=== PATIENT | female | born 1935 | race Caucasian/White ===

== ENCOUNTER 2020-03-04 00:45 | Inpatient (IN) | payer OTHER, MEDICAID, SELFPAY ==
[~2020-03-04] VITALS: Ht 160 cm; Wt 63.5 kg
[2020-03-04 00:50] VITALS: BP 160/72
--- NOTE | 2020-03-04 01:18 | NUR ---
84 y/o female biba c/o right shoulder pain s/p fall. Patient denies any injury to the head. A/ox4; breathing unlabored; 93% on RA. Speech is clear. Denies n/v/d. Pain is 8/10 acute pain. Slight range of motion on right arm compared to the right arm. skin warm and dry. Ermd made aware. Will continue to monitor. Addendum: 03/04/20 at 0212 by Solta MedicalSIDNEY Patient has left upper catheter.
[2020-03-04] MEDS ORDERED: NACL 0.9% 500 ML IV SCH (01:43)
[2020-03-04] MEDS ORDERED: ONDANSETRON 4 MG/2 ML VIAL IVP ONE (01:45)
[2020-03-04] MEDS ORDERED: MORPHINE SULFATE 2 MG/ML SYR IVP ONE (01:45)
--- NOTE | 2020-03-04 02:00 | NUR ---
EKG PERFORMED AT BEDSIDE
--- NOTE | 2020-03-04 02:08 | NUR ---
Patient taken to CT.
[2020-03-04 02:18] LABS: BASOPHILS % (AUTO) 0.9 % (0.0-2.0); EOSINOPHILS # (AUTO) 0.2 K/uL (0-0.4); EOSINOPHILS % (AUTO) 4.1 % (0.0-4.0); HEMOGLOBIN 12.5 g/dL (12.0-16.0); LYMPHOCYTES # (AUTO) 1.1 K/uL (2.5-16.5); LYMPHOCYTES % (AUTO) 26.2 % (20.5-51.1); MEAN CORPUSCULAR HEMOGLOBIN 31 pg (27-31); MEAN CORPUSCULAR HGB CONC 34 g/dL (33-37); MONOCYTES # (AUTO) 0.5 K/uL (0.8-1.0); MONOCYTES % (AUTO) 12.4 % (1.7-9.3); NEUTROPHILS # (AUTO) 2.4 K/uL (1.8-7.7); NEUTROPHILS % (AUTO) 56.4 % (42.2-75.2); PLATELET COUNT (AUTO) 135 K/uL (140-450); RED BLOOD CELL COUNT(AUTO) 4.02 MIL/uL (4.20-5.40); RED CELL DISTRIBUTION WIDTH 13.8 % (11.6-13.7); WHITE BLOOD COUNT (AUTO) 4.2 K/uL (4.8-10.8)
[2020-03-04 02:33] LABS: PROTHROMBIN TIME 10.9 secs (10.8-13.4)
[2020-03-04 02:36] LABS: ANION GAP 15.2 (8-16); ASPARTATE AMINOTRANSFERASE 32 U/L (15-37); CARBON DIOXIDE 25.3 mmol/L (21-32); CHLORIDE 105 mmol/L (98-107); CREATININE 0.9 mg/dL (0.6-1.3); GLUCOSE 100 mg/dL (74-106); POTASSIUM 3.5 mmol/L (3.5-5.1); SODIUM SERUM 142 mmol/L (136-145); TOTAL BILIRUBIN 0.5 mg/dL (0.0-1.0); UREA NITROGEN, BLOOD 14 mg/dL (7-18)
--- NOTE | 2020-03-04 03:00 | NUR ---
Patient sitting quietly in bed. Will continue to monitor. Addendum: 03/04/20 at 0553 by NOMAN Patient states 0/10 pain at this time.
[2020-03-04 03:10] LABS: APPEARANCE,URINE SL CLOUDY (CLEAR); BILIRUBIN,URINE NEGATIVE (NEGATIVE); BLOOD, URINE NEGATIVE (NEGATIVE); COLOR,URINE YELLOW (YELLOW); LEUKOCYTE ESTERASE ,URINE 1+ (NEGATIVE); NITRITE, URINE POSITIVE (NEGATIVE); PH,URINE 6.5 (5.0-9.0); UGLUCOSE NEGATIVE (NEGATIVE)
[2020-03-04 03:48] LABS: RBC,URINE 0-5 /HPF (0-5)
[2020-03-04] MEDS ORDERED: LEVOFLOXACIN 500 MG/D5W PREMIX 100 ML IV ONE (03:55)
--- NOTE | 2020-03-04 04:30 | NUR ---
Patient resting with eyes closed. No distress. Will continue to monitor.
[2020-03-04] MEDS ORDERED: ASPIRIN 81 MG TAB.CHEW PO ONE (05:05)
--- NOTE | 2020-03-04 05:35 | NUR ---
Patient is resting in bed, sitting with HOB 30 degrees. VSS. No distress noted. Will continue to monitor.
--- NOTE | 2020-03-04 07:05 | NUR ---
Pt report given to Rachel. IBRAHIM. Transfer of care at this time.
--- NOTE | 2020-03-04 07:15 | NUR ---
RECEIVED REPORT FROM PATRICE VAUGHAN.
--- NOTE | 2020-03-04 09:41 | NUR ---
PT IS RESTING IN THE BED. VSS SHOWS ON THE MONITOR.
[2020-03-04] MEDS ORDERED: ONDANSETRON 4 MG/2 ML VIAL IM/IVP PRN (10:00)
[2020-03-04] MEDS ORDERED: MORPHINE SULFATE 2 MG/ML SYR IVP PRN (10:00)
[2020-03-04] MEDS ORDERED: ACETAMINOPHEN 325 MG TAB PO PRN (10:00)
[2020-03-04] MEDS ORDERED: DOCUSATE SODIUM 100 MG GELCAP PO PRN (10:00)
[2020-03-04] MEDS ORDERED: HYDROcodone/APAP 5/325 MG 1 TAB TAB PO PRN (10:00)
[2020-03-04] MEDS ORDERED: HYDR100T79 PO (10:44)
[2020-03-04] MEDS ORDERED: MAGN400S60 PO (10:44)
[2020-03-04] MEDS ORDERED: SERT-146 PO (10:44)
[2020-03-04] MEDS ORDERED: BISA-213 RC (10:44)
[2020-03-04] MEDS ORDERED: [UNRECOGNIZED DRUG - CODE] PO (10:44)
[2020-03-04] MEDS ORDERED: CAPS0.026 TP (10:44)
[2020-03-04] MEDS ORDERED: ASPI81EC98 PO (10:44)
[2020-03-04] MEDS ORDERED: FURO-572 PO (10:44)
[2020-03-04] MEDS ORDERED: LISI-424 PO (10:44)
[2020-03-04] MEDS ORDERED: CAPS42.513 TP (10:44)
[2020-03-04] MEDS ORDERED: ACET-2619 PO ×2 (10:44)
[2020-03-04] MEDS ORDERED: [UNRECOGNIZED DRUG - CODE] PO (10:44)
[2020-03-04] MEDS ORDERED: SENN8.6T70 PO (10:44)
[2020-03-04] MEDS ORDERED: GABA-638 PO (10:44)
[2020-03-04] MEDS ORDERED: ONDA4TAB PO (10:44)
[2020-03-04] MEDS ORDERED: DONE10TA37 PO (10:44)
[2020-03-04 10:52] LABS: MAGNESIUM 1.6 mg/dL (1.8-2.4); PHOSPHORUS 3.1 mg/dL (2.5-4.9); THYROID STIMULATING HORMONE 2.64 uIU/mL (0.34-3.74)
--- NOTE | 2020-03-04 11:10 | NUR ---
Patient will be admitted to care of R/O COVID-19, ESCALATING TROPONIN, UTI, AND RIGHT HUMERAL FX. Admited to TELEMETRY. Will go to room 113. Belongings list completed. Report to PATRICE KU.
--- NOTE | 2020-03-04 11:15 | NUR ---
COVID-19 SWAB OBTAINED AT BEDSIDE AND SENT TO THE LAB.
[2020-03-04 12:00] VITALS: BP 175/58
--- NOTE | 2020-03-04 12:00 | NUR ---
PT ON THE UNIT AT 1110, RECEIVED REPORT FROM NURSE KU FOR CONTINUITY OF CARE, PT STABLE, PT [id number], PT HAS RIGHT FA 20G INFUSING NORMAL SALINE AT 40ML/H, SKIN INTACT, MRSA SWAB TAKEN, INTRODUCE TO ROOM, BED IN LOW POSITION, BED ALARM ON, PT STABLE, CALL LIGHT WITHIN REACH.
[2020-03-04] MEDS: NACL 0.9% 1,000 ML IV SCH (12:34)
[2020-03-04] MEDS ORDERED: MAG SULF 2000 MG/WATER PREMIX 50 ML IV SCH (13:00)
--- NOTE | 2020-03-04 13:37 | NUR ---
ADMINISTERED SCHEDULED MEDICATION, MEDICATION EDUCATION GIVEN, PT TOLERATED WELL, PT IS STABLE, TALKING TO HER SON HONORIO ON THE PHONE, CALL LIGHT WITHIN REACH.
[2020-03-04] MEDS ORDERED: BISACODYL 10 MG SUPP RC PRN (14:25)
[2020-03-04] MEDS ORDERED: ONDANSETRON 4 MG TAB PO PRN (14:25)
[2020-03-04] MEDS ORDERED: MAGNESIUM HYDROXIDE 2400 MG/30 ML UDC PO PRN (14:25)
--- NOTE | 2020-03-04 15:10 | NUR ---
[age] YRS OLD FEMALE PATIENT WAS ADMITTED FROM [facility] WITH A DX OF UTI AND RIGHT HUMERUS FRACTURE . PT HAS A HX OF HTN, OA ,DEMENTIA , MAJOR DEPRESSIVE DISORDER ,CHF AND PERIPHERAL NEUROPATHY . XR RIGHT HUMERUS SHOWED OLD FRACTURE ,DEFORMITY OF HUMERAL HEAD AND NECK AND OSTEOPOROSIS. 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 CT ABD/PELVIS SHOWED NO BOWEL OBSTRUCTION NONCALCIFIED GALLSTONE. STARTED IV FLUID , LEVAQUIN IV ABX. CONSULTED WITH LISETTE SOFIA DR., DC PLAN TO GO BACK TO [facility] WHEN STABLE CM TO FOLLOW Addendum: 03/05/20 at 0935 by Tamica Luz CM SPOKE WITH GREGG AT [facility] [phone] FAX # [phone] TO ASK IF THEY ARE ACCEPTING COVID POSITIVE PATIENTS. SHE ASKED THAT I SENT THE PATIENTS CLINICALS FOR REVIEW. AT THIS TIME THEY DO HAVE COVID PATIENTS AT THE FACILITY. I WILL FOLLOW UP. Addendum: 03/05/20 at 9313 by Tamica Luz CM SPOKE WITH GREGG AT [facility] THEY WILL ACCEPT PATIENT BUT THEY ARE IN THE PROCESS OF TRANSFERRING ALL COVID PATIENTS TO [facility]. SHE IS GOING TO REACH OUT TO THE FAMILY MEMBERS TO MAKE SURE THEY ARE AGREEABLE TO PATIENT GOING TO [facility]. I WILL FOLLOW UP ONCE WE RECEIVE DISCHARGE ORDER. Addendum: 03/06/20 at 1210 by Tamica Luz CM SPOKE TO GREGG AT [facility] THEY ARE STILL IN PROCESS OF MOVING ALL COVID PATIENTS TO [facility]. SHE STATED THAT PATIENT SHOULD HAVE A ROOM AVAILABLE BY THE END OF NOT, IF NOT TOMORROW. WILL FOLLOW UP WITH GREGG. Addendum: 03/06/20 at 1437 by Tamica Luz CM PATIENT WILL BE ACCEPTED BACK AT [facility] TODAY GOING TO ROOM 22 B ACCEPTING DOCTOR MICHAEL CAR. PATIENT WILL BE TRANSPORTED BY [facility]. NOTIFIED SON HONORIO TANG [phone]. NOTIFIED PATRICE BURLESON THAT PATIENT WILL BE DISCHARGED TODAY AND WILL NOTIFY THEM WHAT TIME [facility] WILL BE HERE. Addendum: 03/07/20 at 1037 by Tamica Luz CM PATIENT WAS DISCHARGED TO [facility]. JORY SARAVIA FROM [facility] CALLED TODAY [phone] TO VERIFY THAT PATIENT WAS ACCEPTED BACK TO [facility].
[2020-03-04] MEDS: hydrALAZINE 25 MG TAB PO PRN (15:15)
[2020-03-04] MEDS: LORazepam 2 MG/ML VIAL IM/IVP PRN (15:16)
--- NOTE | 2020-03-04 15:23 | NUR ---
ADMINISTERED ATIVAN FOR AGITATION, ADMINISTERED HYDRALAZINE FOR BP 175/68, HR63, MEDICATION EDUCATION GIVEN, PT TOLERATED MEDICATION, CALL LIGHT WITHIN REACH.
[2020-03-04 16:00] VITALS: BP 194/96
--- NOTE | 2020-03-04 17:00 | NUR ---
PT RESTING IN BED, NO SIGNS OF DISTRESS NOTED, RESPIRATIONS ARE EVEN AND UNLABORED, CALL LIGHT WITHIN REACH.
[2020-03-04] MEDS: OLANZapine 2.5 MG TAB PO SCH ×2 (17:47→18:01)
[2020-03-04] MEDS ORDERED: ALBUTEROL HFA MDI 90 MCG/ACTUATION 8 GM INH PRN (17:50)
--- NOTE | 2020-03-04 19:10 | NUR ---
GAVE REPORT TO NIGHT NURSE FOR CONTINUITY OF CARE, PT IS STABLE
--- NOTE | 2020-03-04 19:17 | NUR ---
RECEIVED REPORT FROM AM SHIFT NURSE FOR CONTINUITY OF CARE. RESPIRATIONS EVEN, UNLABORED. SKIN WARM, DRY. IV SITE NOTED TO RIGHT FOREARM 20G, INFUSING FLUIDS WELL. NO C/O PAIN. NO S/S ACUTE DISTRESS. CALL LIGHT WITHIN REACH. SAFETY PRECAUTIONS IN PLACE. ISOLATION PRECAUTIONS OBSERVED BY ALL STAFF.
[2020-03-04 20:00] VITALS: BP 179/69
[2020-03-04] MEDS: OXYBUTYNIN 5 MG TAB PO SCH (20:50)
[2020-03-04] MEDS: GABAPENTIN 300 MG CAP PO SCH (20:50)
[2020-03-04] MEDS: DONEPEZIL 10 MG TAB PO SCH (20:50)
[2020-03-04] MEDS: SENNA 8.6 MG TAB PO SCH (20:50)
[2020-03-04] MEDS ORDERED: hydrALAZINE 20 MG/ML VIAL IVP SCH (21:15)
--- NOTE | 2020-03-04 21:30 | NUR ---
PATIENT ACCIDENTLY PULLED OUT IV SITE. CATHETER INTACT. MINIMAL BLEEDING. NEW IV SITE STARTED ON LEFT FOREARM 22G USING ASEPTIC TECHNIQUE. GOOD BLOOD RETURN. NO DISCOMFORT VERBALIZED FROM PATIENT. CALL LIGHT IN REACH. SAFETY PRECAUTIONS IN PLACE. ISOLATION PRECAUTIONS OBSERVED BY ALL STAFF.
[2020-03-04] MEDS ORDERED: cefTRIAXone 1,000 MG VIAL ONE (21:58)
--- NOTE | 2020-03-04 23:33 | NUR ---
PATIENT HAD A HIGH BLOOD PRESSURE OF 179/69, HR 72. PRN HYDRALAZINE GIVEN WITH GOOD RESULTS: BP IS CURRENTLY AT 169/68, HR 74. PATIENT RESTING COMFORTABLY IN BED AT THIS TIME. ISOLATION PRECAUTIONS OBSERVED. CALL LIGHT IN REACH.
[2020-03-05] VITALS (7 sets, daily range): BP systolic 106–175; BP diastolic 42–70
--- NOTE | 2020-03-05 01:30 | NUR ---
INCONTINENT CARE RENDERED BY COST CONTROLLER. PATIENT COMFORTABLY IN BED. NO C/O PAIN. NO S/S ACUTE DISTRESS. CALL LIGHT IN REACH.
--- NOTE | 2020-03-05 03:24 | NUR ---
MADE ROUNDS. PATIENT IS ASLEEP. NO S/S ACUTE DISTRESS. CALL LIGHT WITHIN REACH. ISOLATION PRECAUTIONS OBSERVED BY STAFF.
[2020-03-05] MEDS ORDERED: hydrALAZINE 20 MG/ML VIAL IVP SCH (03:55)
--- NOTE | 2020-03-05 04:46 | NUR ---
PATIENT HAD AN ELEVATED BLOOD PRESSURE OF 175/[address] LIRA INFORMED WITH ORDER FOR HYDRALAZINE 10MG IVP. MEDICATED ORDERED. BLOOD PRESSURE CURRENTLY 169/60 HR 80. PATIENT IS ASLEEP AND IN NO S/S ACUTE DISTRESS. CALL LIGHT WITHIN REACH. ISOLATION PRECAUTIONS OBSERVED.
--- NOTE | 2020-03-05 06:01 | NUR ---
PATIENT RESTING COMFORTABLY IN BED. NO C/O PAIN. NO S/S ACUTE DISTRESS. CALL LIGHT WITHIN REACH. SAFETY PRECAUTIONS IN PLACE. ISOLATION PRECAUTIONS OBSERVED BY ALL STAFF.
--- NOTE | 2020-03-05 07:05 | NUR ---
RECEIVED BEDSIDE REPORT FROM NIGHTSHIFT NURSE. PT RESTING IN BED. ABLE TO MAKE NEEDS KNOWN. RESPONSIVE TO VERBAL AND TACTILE STIMULI. RESPIRATIONS EVEN AND UNLABORED WITH NO SOB OR RESPIRATORY DISTRESS. SKIN WARM AND DRY TO TOUCH. IV SITE IN L ARM 22G IS CLEAN, DRY, AND INTACT. SAFETY MEASURES IN PLACE. WILL CONTINUE TO MONITOR
[2020-03-05 07:11] LABS: BASOPHILS % (AUTO) 0.4 % (0.0-2.0); EOSINOPHILS # (AUTO) 0.1 K/uL (0-0.4); EOSINOPHILS % (AUTO) 3.3 % (0.0-4.0); HEMATOCRIT 38.6 % (36-48); LYMPHOCYTES # (AUTO) 1.3 K/uL (2.5-16.5); LYMPHOCYTES % (AUTO) 39.7 % (20.5-51.1); MEAN CORPUSCULAR HEMOGLOBIN 31 pg (27-31); MEAN CORPUSCULAR HGB CONC 34 g/dL (33-37); MEAN CORPUSCULAR VOLUME 92.6 fL (80-94); MONOCYTES # (AUTO) 0.4 K/uL (0.8-1.0); MONOCYTES % (AUTO) 11.1 % (1.7-9.3); NEUTROPHILS # (AUTO) 1.5 K/uL (1.8-7.7); NEUTROPHILS % (AUTO) 45.5 % (42.2-75.2); PLATELET COUNT (AUTO) 132 K/uL (140-450); RED BLOOD CELL COUNT(AUTO) 4.17 MIL/uL (4.20-5.40); WHITE BLOOD COUNT (AUTO) 3.2 K/uL (4.8-10.8)
[2020-03-05 07:29] LABS: ANION GAP 13.6 (8-16); ASPARTATE AMINOTRANSFERASE 29 U/L (15-37); CARBON DIOXIDE 26.9 mmol/L (21-32); CHLORIDE 107 mmol/L (98-107); CREATININE 0.7 mg/dL (0.6-1.3); GLUCOSE 88 mg/dL (74-106); LACTATE DEHYDROGENASE 190 U/L (81-234); MAGNESIUM 1.7 mg/dL (1.8-2.4); POTASSIUM 3.5 mmol/L (3.5-5.1); SODIUM SERUM 144 mmol/L (136-145); TOTAL BILIRUBIN 0.4 mg/dL (0.0-1.0); UREA NITROGEN, BLOOD 14 mg/dL (7-18)
[2020-03-05 07:59] LABS: CHOL/HDL RATIO 3.4 (1-4.5)
[2020-03-05] MEDS ORDERED: ASCORBIC ACID 500 MG TAB PO SCH (09:00)
--- NOTE | 2020-03-05 09:13 | NUR ---
PATIENT HAS BEEN SCREENED AND CATEGORIZED MODERATE NUTRITION RISK. PATIENT WILL BE SEEN WITHIN 3-5 DAYS OF ADMISSION. 03/06/20 03/08/[address]
[2020-03-05] MEDS ORDERED: MAG SULF 2000 MG/WATER PREMIX 50 ML IV SCH (10:00)
[2020-03-05] MEDS: ASCORBIC ACID 500 MG TAB PO SCH (10:15)
[2020-03-05] MEDS: SERTRALINE 50 MG TAB PO SCH (10:15)
[2020-03-05] MEDS: LISINOPRIL 5 MG TAB PO SCH (10:15)
[2020-03-05] MEDS: hydrALAZINE 25 MG TAB PO PRN ×2 (10:16→21:22)
[2020-03-05] MEDS: ECOTRIN 81 MG TABEC PO SCH (10:16)
[2020-03-05] MEDS: OXYBUTYNIN 5 MG TAB PO SCH ×2 (10:16→21:22)
[2020-03-05] MEDS: ZINC SULF 220 MG CAP PO SCH (10:17)
[2020-03-05] MEDS: GABAPENTIN 300 MG CAP PO SCH ×2 (10:17→21:23)
[2020-03-05] MEDS: VITAMIN D 400 IU TAB PO SCH (10:17)
[2020-03-05] MEDS: FUROSEMIDE 20 MG TAB PO SCH (10:17)
[2020-03-05] MEDS: NACL 0.9% 1,000 ML IV SCH (10:30)
--- NOTE | 2020-03-05 10:30 | NUR ---
ADMINISTERED SCHED MED PRESCRIBED PER MD ORDER. PT TOLERATED WELL. MEDICATION EDUCATION PERFORMED. PT VERBALIZED UNDERSTANDING. SAFETY MEASURES IN PLACE. WILL CONTINUE TO MONITOR
--- NOTE | 2020-03-05 11:38 | NUR ---
RAW MILL OPERATOR NOTE: Basic Screen: Yes High Risk DC Screen [place]: HONORIO TANG Home Relationship: SON Pre-Admission Living Arrangements: SNF Other: [facility] Prior ADL Needs Assistance Current Home Health Name/Tel: N/A Current DME/02 Name/Tel: [facility] Current Hospice Name/Tel: N/A Current Dialysis Name/Tel: N/A Healthcare Decision Maker: Next of Kin Other: HONORIO TANG Advance Directive No Physician Orders for Life Sustaining Treatment Form No Discipline: Case Mgt/Social Svcs Tentative Discharge Plan/Destination: SNF/ECF Other: [facility] Will require assistance post discharge: No Referred to Digital Tech: No Tentative Discharge Plan Summary: PATIENT IS AN 84-YEAR-OLD FEMALE ADMITTED FOR UTI AND RIGHT HUMERUS FRACTURE. PATIENT HAS PMHX OF OSTEOARTHRITIS, DEMENTIA, HTN, MAJOR DEPRESSIVE DISORDER, CHF, OAB, AND PERIPHERAL NEUROPATHY. PATIENT WAS ADMITTED FROM [facility]. SW CONTACTED LADJerry FROM [facility] TO VERIFY DEMOGRAPHICS [phone]. PER LADY, PATIENT IS SKILLED AND ON A BED HOLD. LADY STATED THAT PATIENT REQUIRES ASSSITANCE WITH BATHING AND MEAL PREPARATION BUT PATIENT IS INDEPENDENT WITH ALL OTHER ADLS. LADY STATED THAT PATIENT IS ALERT/ORIETNED BUT IS FORGETFUL. LADY STATED THAT PATIENT'S HEALTHCARE DECISION MAKER IS SON HONORIO TANG. TENTATIVE DISCHARGE PLAN IS FOR PATIENT TO RETURN TO [facility]. NO FURTHER NEEDS IDENTIFIED. Signature: MARCOS ROJAS Date: Mar 05, 2020 Time: 11:38
--- NOTE | 2020-03-05 12:15 | NUR ---
ASSISTED LOGISTICS COORDINATOR WITH CHANGING, TURNING, AND REPOSITIONING PT. PT TOLERATED WELL. WILL CONTINUE TO MONITOR
--- NOTE | 2020-03-05 13:45 | NUR ---
HOURLY ROUNDING. PT ASLEEP IN BED. RESPONSIVE TO VERBAL AND TACTILE STIMULI. RESPIRATIONS EVEN AND UNLABORED WITH NO SOB OR RESPIRATORY DISTRESS. SKIN WARM AND DRY TO TOUCH. SAFETY MEASURES IN PLACE. WILL CONTINUE TO MONITOR
--- NOTE | 2020-03-05 15:46 | NUR ---
PT TOOK OFF GOWN AND ATTEMPTED TO TAKE OFF LEADS. ASKED PT WHAT SHE WAS DOING AND SHE SAID, "I AM GETTING OUT OF HERE! I WANT TO GO HOME!." REORIENTED PT AND SHE BECAME UPSET THAT SHE HAS TO STAY ANOTHER NIGHT. SAFETY MEASURES IN PLACE. WILL CONTINUE TO MONITOR
--- NOTE | 2020-03-05 17:02 | NUR ---
ASSISTED OFFICE AGENT WITH TURNING, CHANGING, AND REPOSITIONING PT. PT TOLERATED WELL. SAFETY MEASURES IN PLACE. WILL CONTINUE TO MONITOR
--- NOTE | 2020-03-05 18:15 | NUR ---
PT RESTING IN BED. ABLE TO MAKE NEEDS KNOWN. RESPIRATIONS EVEN AND UNLABORED WITH NO SOB OR RESPIRATORY DISTRESS. SKIN WARM AND DRY TO TOUCH. SAFETY MEASURES IN PLACE. WILL CONTINUE TO MONITOR
--- NOTE | 2020-03-05 19:13 | NUR ---
ENDORSED TO NIGHTSHIFT NURSE FOR CONTINUITY OF CARE. PT IS STABLE
--- NOTE | 2020-03-05 19:14 | NUR ---
RECEIVED BEDSIDE REPORT FROM AM SHIFT NURSE. PT RESTING IN BED. A,O X 2 ABLE TO MAKE NEEDS KNOWN. RESPONSIVE TO VERBAL AND TACTILE STIMULI. RESPIRATIONS EVEN AND UNLABORED WITH NO SOB OR RESPIRATORY DISTRESS. SKIN WARM AND DRY TO TOUCH. IV SITE IN L ARM 22G IS CLEAN, DRY, AND INTACT. SAFETY MEASURES IN PLACE. WILL CONTINUE TO MONITOR
--- NOTE | 2020-03-05 20:20 | NUR ---
PATIENT ANXIOUS, AND RESTLESS SHE SAID SHE WANTS TO GO HOME, B.P 166/ 59 HIGH; 73, INFORMED PATIENT THAT SHE WILL GO HOME SOON CLEARED HER AND THAT WILL LET DRShani KNOW HER CONCERNS. PATIENT A,0 X 2. BEDREST FOLLOWS SIMPLE COMMANDS. WILL GIVE ATIVAN ORDERED PRN
--- NOTE | 2020-03-05 20:45 | NUR ---
DR. NOEL WENT TO ROOM, ORDERED VERBALLY REMDESIVIR 200 MG DAY 1, AND 100 MG DAY 2-5
[2020-03-05] MEDS: SENNA 8.6 MG TAB PO SCH (21:21)
[2020-03-05] MEDS: DONEPEZIL 10 MG TAB PO SCH (21:23)
[2020-03-05] MEDS: LORazepam 2 MG/ML VIAL IM/IVP PRN (21:26)
--- NOTE | 2020-03-05 22:05 | NUR ---
PATIENT SLEEPING COMFORTABLE, CLEANED PATIENT AND CHANGED PATIENT, PLACED PT ON HER SIDE WITH PILLOWS
[2020-03-06] VITALS: BP 125/43
--- NOTE | 2020-03-06 | NUR ---
PT SLEEPING, BUT EASILY AWAKENED BY VERBAL STIMULI, NO SIGNS AND SYMPTOMS OF RESPIRATORY DISTRESS. NO S/SX'S OF PAIN.
--- NOTE | 2020-03-06 02:28 | NUR ---
CHECKED ON PATIENT STILL SLEEPING BUT EASILY AWAKENED BY VERBAL STIMULI
[2020-03-06 04:00] VITALS: BP 176/63
--- NOTE | 2020-03-06 04:00 | NUR ---
HIGH BP 176/63; 96%; 97.8; 18; 0/10. WILL ADMISTER PRN HYDRALAZINE PER SCHEDULE AROUND 0600AM (LAST GIVEN WAS 2122 ( Q8 HRS FOR SBP GREATER 160)
[2020-03-06] MEDS: hydrALAZINE 25 MG TAB PO PRN ×2 (06:16→15:34)
--- NOTE | 2020-03-06 06:16 | NUR ---
ADMINISTERED HYDRALAZINE PRN BP= 176/63; HR 63; O2 SQAT 96%; TEMP 97.8; 0/10
--- NOTE | 2020-03-06 06:30 | NUR ---
PATIENT IN STABLE CONDITION AT THIS TIME, NO SIGNS OF RESPIRATORY DISTRESS; NO COMPLAINTS OF PAIN/ FACIAL GRIMACING. WILL ENDORSE TO NEXT SHIFT
--- NOTE | 2020-03-06 06:45 | NUR ---
REASSESSED PATIENT'S BP; AFTER ADMINISTERING HYDRALAZINE 130/40; HR 73, WILL ENDORSE TO NEXT SHIFT
--- NOTE | 2020-03-06 07:05 | NUR ---
REPORT GIVEN BY NIGHT NURSE. PATIENT IN STABLE CONDITION. PATIENT ASLEEP, EASILY AROUSABLE BY NAME OR TOUCH. INTRODUCED SELF. RESPIRATION EVEN AND UNLABORED. SKIN WARM AND DRY TO TOUCH. IV INTACT AND PATENT TO LEFT FOREARM. PLANS OF CARE DISCUSSED WITH NURSE. NO S/S OF DISTRESS NOTED. BED IN LOW POSITION. SAFETY MEASURES IN PLACE. CALL LIGHT WITHIN REACH.
[2020-03-06 07:16] LABS: BASOPHILS % (AUTO) 0.2 % (0.0-2.0); EOSINOPHILS # (AUTO) 0.2 K/uL (0-0.4); EOSINOPHILS % (AUTO) 4.8 % (0.0-4.0); HEMATOCRIT 36.1 % (36-48); HEMOGLOBIN 12.1 g/dL (12.0-16.0); LYMPHOCYTES # (AUTO) 1.4 K/uL (2.5-16.5); LYMPHOCYTES % (AUTO) 43.6 % (20.5-51.1); MEAN CORPUSCULAR HEMOGLOBIN 31 pg (27-31); MEAN CORPUSCULAR HGB CONC 34 g/dL (33-37); MEAN CORPUSCULAR VOLUME 92.3 fL (80-94); MONOCYTES # (AUTO) 0.4 K/uL (0.8-1.0); MONOCYTES % (AUTO) 13.1 % (1.7-9.3); NEUTROPHILS # (AUTO) 1.3 K/uL (1.8-7.7); NEUTROPHILS % (AUTO) 38.3 % (42.2-75.2); PLATELET COUNT (AUTO) 128 K/uL (140-450); RED BLOOD CELL COUNT(AUTO) 3.91 MIL/uL (4.20-5.40); WHITE BLOOD COUNT (AUTO) 3.3 K/uL (4.8-10.8)
[2020-03-06 08:00] VITALS: BP 180/62
[2020-03-06 08:03] LABS: ALBUMIN 2.8 g/dL (3.4-5.0); ANION GAP 12.8 (8-16); ASPARTATE AMINOTRANSFERASE 27 U/L (15-37); CARBON DIOXIDE 25.4 mmol/L (21-32); CHLORIDE 107 mmol/L (98-107); CREATININE 0.7 mg/dL (0.6-1.3); GLUCOSE 82 mg/dL (74-106); LACTATE DEHYDROGENASE 184 U/L (81-234); MAGNESIUM 1.9 mg/dL (1.8-2.4); POTASSIUM 3.2 mmol/L (3.5-5.1); SODIUM SERUM 142 mmol/L (136-145); TOTAL BILIRUBIN 0.4 mg/dL (0.0-1.0); UREA NITROGEN, BLOOD 15 mg/dL (7-18)
[2020-03-06] MEDS ORDERED: LOVENOX 1MG/KG Q24H SUBQ SCH (08:25)
[2020-03-06] MEDS ORDERED: COMMUNICATION ORDER MC SCH (09:00)
[2020-03-06] MEDS ORDERED: ENOXAPARIN 60 MG/0.6 ML SYR SUBQ SCH (09:00)
[2020-03-06] MEDS ORDERED: REMDESIVIR 200 MG IV SCH (09:00)
[2020-03-06] MEDS: OXYBUTYNIN 5 MG TAB PO SCH (09:29)
[2020-03-06] MEDS: VITAMIN D 400 IU TAB PO SCH (09:29)
[2020-03-06] MEDS: ASCORBIC ACID 500 MG TAB PO SCH (09:29)
[2020-03-06] MEDS: FUROSEMIDE 20 MG TAB PO SCH (09:29)
[2020-03-06] MEDS: GABAPENTIN 300 MG CAP PO SCH (09:29)
[2020-03-06] MEDS: LISINOPRIL 5 MG TAB PO SCH (09:30)
[2020-03-06] MEDS: ZINC SULF 220 MG CAP PO SCH (09:30)
[2020-03-06] MEDS: SERTRALINE 50 MG TAB PO SCH (09:30)
[2020-03-06] MEDS: ECOTRIN 81 MG TABEC PO SCH (09:30)
--- NOTE | 2020-03-06 09:30 | NUR ---
PATIENT AWAKE, VERBALLY RESPONSIVE. AM MEDS GIVEN, TOLERATED WELL. DENIES ANY SOB OR DISCOMFORT. BED IN LOW POSITION. BED ALARM ON. CALL LIGHT WITHIN REACH.
[2020-03-06] MEDS: NACL 0.9% 1,000 ML IV SCH (10:25)
[2020-03-06] MEDS ORDERED: POTASSIUM CHLORIDE 40 MEQ, LIDOCAINE MPF 1% 25 MG in NACL 0.9% 250 ML IV SCH (11:30)
--- NOTE | 2020-03-06 11:40 | NUR ---
PATIENT CLEANED AND REPOSITIONED FOR COMFORT. PATIENT AWAKE, ALERT AND ORIENTED X3. PATIENT ON THE PHONE WITH GLORIA OLMEDO. PT AT BEDSIDE FOR EVAL.
[2020-03-06] MEDS ORDERED: LEVO750T2 PO (11:51)
[2020-03-06] MEDS ORDERED: LACT-81 PO (11:51)
[2020-03-06 12:03] VITALS: BP 141/52
--- NOTE | 2020-03-06 14:20 | NUR ---
RT AT BEDSIDE. PATIENT AWAKE, VERBALLY RESPONSIVE. NO S/S OF DISTRESS NOTED.
[2020-03-06 15:00] VITALS: BP 170/74
--- NOTE | 2020-03-06 15:20 | NUR ---
BP NOTED 170/74 HYDRALAZINE WILL BE GIVEN PRN.
--- NOTE | 2020-03-06 15:35 | NUR ---
PATIENT IS DISCHARGED TO [facility]. PATIENT PICKED UP BY [facility] VIA [facility]URNEY TRANSPORT ACCOMPANIED BY 2 FLEET SALES MANAGER. DISCHARGE PAPERWORK GIVEN TO EMT AND PATIENT BELONGINGS GIVEN. IV REMOVED, CANNULA INTACT, BLEEDING CONTROLLED. PATIENT UNABLE TO SIGN. REPORT GIVEN ALREADY TO PATRICE BRAXTON. PATIENT IN STABLE CONDITION.
--- NOTE | 2020-03-06 20:10 | NUR ---
LAUREN WASTED WITH LULU DOS SANTOS RN.
[2020-03-07] MEDS ORDERED: REMDESIVIR 100 MG IV SCH (09:00)
== END 2020-03-06 15:35 | DRG 177 ==
LOC: MED 00:45 → MTU 10:14 → EEVIPCON 10:14
PROVIDERS: ADMIT General Practice; ATTEND General Practice
DX: U07.1 COVID-19 (principal); I50.43 Acute on chronic combined systolic (congestive) and diastolic (congestive) heart failure; J12.89 Other viral pneumonia; S42.451A Displaced fracture of lateral condyle of right humerus, initial encounter for closed fracture; N39.0 Urinary tract infection, site not specified; E44.1 Mild protein-calorie malnutrition; Z68.24 Body mass index [BMI] 24.0-24.9, adult; F03.90 Unspecified dementia, unspecified severity, without behavioral disturbance, psychotic disturbance, mood disturbance, and anxiety; F32.9 Major depressive disorder, single episode, unspecified; I11.0 Hypertensive heart disease with heart failure; M19.90 Unspecified osteoarthritis, unspecified site; Z88.8 Allergy status to other drugs, medicaments and biological substances; G89.29 Other chronic pain; G62.9 Polyneuropathy, unspecified; B96.1 Klebsiella pneumoniae [K. pneumoniae] as the cause of diseases classified elsewhere; E87.6 Hypokalemia; E83.42 Hypomagnesemia; K59.09 Other constipation; K57.30 Diverticulosis of large intestine without perforation or abscess without bleeding; K80.20 Calculus of gallbladder without cholecystitis without obstruction; N32.81 Overactive bladder; W01.0XXA Fall on same level from slipping, tripping and stumbling without subsequent striking against object, initial encounter; Y93.89 Activity, other specified; Y92.89 Other specified places as the place of occurrence of the external cause; Y99.8 Other external cause status
CPT/HCPCS: 36415; 71045; 73060; 80053; 81001; 82728; 83036; 83605; 83615; 83690; 83735; 83880; 84100; 84443; 84484; 85025; 85379; 85610; 85651; 85730; 86140; 87040; 87081; 87086; 87186; 93005; 96361; 96365; 96375; 97110; 97112; 97116; 97161-GP; 97530; 99285; J0360; J0696; J1644; J1650; J1956; J2001; J2060; J2270; J2405; J3475; J3480; J7030; J7060; Q0092; U0003-CS

== ENCOUNTER 2021-07-21 15:18 | Emergency (ER) | payer OTHER, MEDICAID ==
[~2021-07-21] VITALS: Ht 167.6 cm; Wt 68.9 kg
[~2021-07-21 15:18] MED LIST: ACET-2619 PO; ASCO-516 PO; ASPI81EC98 PO; BISA-213 RC; CAPS42.514 TP; DONE10TA37 PO; FURO-572 PO; GABA-638 PO; HYDR100T79 PO; LACT-81 PO; LEVO750T2 PO; LISI-648 PO; MAGN400S60 PO; ONDA4TAB PO; SENN-101 PO; SERT-515 PO; [UNRECOGNIZED DRUG - CODE] PO
[2021-07-21 15:26] VITALS: BP 125/48
--- NOTE | 2021-07-21 15:56 | NUR ---
Patient BIBA to bed 1 at this time.
[2021-07-21 16:01] LABS: BASOPHILS # (AUTO) 0.1 K/uL (0.00-0.22); BASOPHILS % (AUTO) 1.2 % (0.0-2.0); EOSINOPHILS # (AUTO) 0.6 K/uL (0-0.4); EOSINOPHILS % (AUTO) 8.3 % (0.0-4.0); HEMATOCRIT 34.7 % (36-48); HEMOGLOBIN 11.9 g/dL (12.0-16.0); LYMPHOCYTES # (AUTO) 1.5 K/uL (2.5-16.5); LYMPHOCYTES % (AUTO) 22.8 % (20.5-51.1); MEAN CORPUSCULAR HEMOGLOBIN 32 pg (27-31); MEAN CORPUSCULAR HGB CONC 34 g/dL (33-37); MEAN CORPUSCULAR VOLUME 92.1 fL (80-94); MONOCYTES # (AUTO) 0.5 K/uL (0.8-1.0); MONOCYTES % (AUTO) 7.2 % (1.7-9.3); NEUTROPHILS % (AUTO) 60.5 % (42.2-75.2); PLATELET COUNT (AUTO) 200 K/uL (140-450); RED BLOOD CELL COUNT(AUTO) 3.77 MIL/uL (4.20-5.40); RED CELL DISTRIBUTION WIDTH 13.4 % (11.6-13.7); WHITE BLOOD COUNT (AUTO) 6.7 K/uL (4.8-10.8)
[2021-07-21 16:24] LABS: ALBUMIN 3.5 g/dL (3.4-5.0); ANION GAP 15.6 (8-16); ASPARTATE AMINOTRANSFERASE 31 U/L (15-37); CARBON DIOXIDE 26.1 mmol/L (21-32); CHLORIDE 103 mmol/L (98-107); CREATININE 1.4 mg/dL (0.6-1.3); GLUCOSE 273 mg/dL (74-106); POTASSIUM 3.7 mmol/L (3.5-5.1); SODIUM SERUM 141 mmol/L (136-145); TOTAL BILIRUBIN 0.4 mg/dL (0.0-1.0); UREA NITROGEN, BLOOD 34 mg/dL (7-18)
--- NOTE | 2021-07-21 16:31 | NUR ---
86 Y/O F BIBA FROM [facility] POST WITNESSED MECHANICAL FALL, PT FELL ON FACE, NO LOC OR SYNCOPE NOTED. NOSE LAC, CONTROLLED BLEEDING AT THIS TIME WITH HEMATOMA ON L SIDE OF HEAD. PT IS CURRENTL A&OX1 TO NAME AT THIS TIME WITH A GCS OF 12 NORMAL BASELINE PER [facility]. DENIES N/V/D; SKIN IS PINK/COOL/LOOSE/DRY;LUNGS CLEAR BL; HR EVEN AND REGULAR; PT DENIES ANY FEVER, CP, SOB, OR COUGH AT THIS TIME; PT UNABLE TO DETERMINE PAIN AT THIS TIME; VSS; PATIENT POSITIONED FOR COMFORT; HOB ELEVATED; BEDRAILS UP X2; BED DOWN. ER MD MADE AWARE OF PT STATUS. PMH: DEMENTIA, NEUROPATHY, MEMORY LOSS ALLERGY: EPINEPHRINE
[2021-07-21] MEDS ORDERED: HYDROcodone/APAP 5/325 MG 1 TAB TAB ONE (16:33)
[2021-07-21] MEDS: HYDROcodone/APAP 5/325 MG 1 TAB TAB PO ONE ×2 (16:35→18:38)
--- NOTE | 2021-07-21 16:43 | NUR ---
PT TAKEN TO CT VIA [facility]
[2021-07-21] MEDS ORDERED: HYDR-5080 PO (18:14)
[2021-07-21 18:43] VITALS: BP 125/48
--- NOTE | 2021-07-21 18:44 | NUR ---
Patient discharged with v/s stable. Written and verbal after care instructions given and explained. Patient alert, oriented and verbalized understanding of instructions. Ambulance Transport with [facility]. All questions addressed prior to discharge. ID band removed. Patient advised to follow up with PMD. Rx of HYDROCODONE SCRIPT given. Patient educated on indication of medication including possible reaction and side effects. Opportunity to ask questions provided and answered. CD WITH PACKET GIVEN TO TRANSPORT
--- NOTE | 2021-07-21 18:46 | NUR ---
[facility] [phone] WAS CALLED [phone], PT WAS TAKEN VIA [facility] AT THIS TIME. ANTONIO IBRAHIM GIVEN REPORT AT THIS TIME.
== END 2021-07-21 18:44 ==
LOC: MED 15:18
DX: S02.2XXA Fracture of nasal bones, initial encounter for closed fracture (principal); S09.90XA Unspecified injury of head, initial encounter; I10 Essential (primary) hypertension; F03.90 Unspecified dementia, unspecified severity, without behavioral disturbance, psychotic disturbance, mood disturbance, and anxiety; Z88.8 Allergy status to other drugs, medicaments and biological substances; Z79.899 Other long term (current) drug therapy; W05.0XXA Fall from non-moving wheelchair, initial encounter; Y93.89 Activity, other specified; Y92.89 Other specified places as the place of occurrence of the external cause; Y99.8 Other external cause status
CPT/HCPCS: 36415; 70450; 70486; 71045; 72125; 72170; 80053; 84484; 85025; 90471; 90715; 93005; 99285; Q0092

== ENCOUNTER 2022-05-04 12:26 | Emergency (ER) | payer OTHER, MEDICAID ==
[~2022-05-04] VITALS: Ht 170.2 cm; Wt 63.5 kg
[~2022-05-04 12:26] MED LIST changes: +HYDR-5080 PO; -LISI-648 PO; +LISI5TAB24 PO; +[UNRECOGNIZED DRUG - CODE] PO; -[UNRECOGNIZED DRUG - CODE] PO
--- NOTE | 2022-05-04 12:50 | NUR ---
BIBA TAKEN TO BED 12
[2022-05-04 12:52] VITALS: BP 114/42
--- NOTE | 2022-05-04 13:42 | NUR ---
Pt take to CT for exam
--- NOTE | 2022-05-04 14:04 | NUR ---
87/F NEREIDA FROM [facility]. PER STAFF PATIENT HAD AN UNWITNESSED FALL FROM HER WHEELCHAIR TODAY. DENIES LOC, PATIENT C/O 710 LEFT SIDE OF FACE AND LEFT ARM PAIN. HEMATOMA NOTED TO PATIENTS LEFT FOREHEAD. PATIENT ANSWERING QUESTIONS APPROPRIATELY.
[2022-05-04 14:59] LABS: ALBUMIN 3.3 g/dL (3.4-5.0); ANION GAP 15.2 (8-16); ASPARTATE AMINOTRANSFERASE 26 U/L (15-37); CARBON DIOXIDE 25.3 mmol/L (21-32); CHLORIDE 106 mmol/L (98-107); GLUCOSE 110 mg/dL (74-106); POTASSIUM 3.5 mmol/L (3.5-5.1); SODIUM SERUM 143 mmol/L (136-145); TOTAL BILIRUBIN 0.4 mg/dL (0.0-1.0); UREA NITROGEN, BLOOD 26 mg/dL (7-18)
[2022-05-04] MEDS ORDERED: ACETAMINOPHEN EXTRA STRENGTH 500 MG TAB PO ONE (15:45)
[2022-05-04 15:51] LABS: BASOPHILS # (AUTO) 0.1 K/uL (0.00-0.22); BASOPHILS % (AUTO) 1.2 % (0.0-2.0); EOSINOPHILS # (AUTO) 0.6 K/uL (0-0.4); EOSINOPHILS % (AUTO) 7.5 % (0.0-4.0); HEMATOCRIT 35.3 % (36-48); HEMOGLOBIN 11.8 g/dL (12.0-16.0); LYMPHOCYTES # (AUTO) 1.8 K/uL (2.5-16.5); LYMPHOCYTES % (AUTO) 23.6 % (20.5-51.1); MEAN CORPUSCULAR HEMOGLOBIN 30 pg (27-31); MEAN CORPUSCULAR HGB CONC 34 g/dL (33-37); MEAN CORPUSCULAR VOLUME 88.6 fL (80-94); MONOCYTES # (AUTO) 0.5 K/uL (0.8-1.0); MONOCYTES % (AUTO) 6.3 % (1.7-9.3); NEUTROPHILS # (AUTO) 4.6 K/uL (1.8-7.7); NEUTROPHILS % (AUTO) 61.4 % (42.2-75.2); PLATELET COUNT (AUTO) 195 K/uL (140-450); RED BLOOD CELL COUNT(AUTO) 3.98 MIL/uL (4.20-5.40); RED CELL DISTRIBUTION WIDTH 12.9 % (11.6-13.7); WHITE BLOOD COUNT (AUTO) 7.5 K/uL (4.8-10.8)
--- NOTE | 2022-05-04 16:10 | NUR ---
Patient appears to be resting comfortably in bed. Vital Signs within normal limits. Respirations even and unlabored.
[2022-05-04] MEDS ORDERED: ACETAMINOPHEN EXTRA STRENGTH 500 MG TAB ONE (16:47)
--- NOTE | 2022-05-04 17:47 | NUR ---
Report given to Shamika IBRAHIM at [facility]
--- NOTE | 2022-05-04 18:19 | NUR ---
Transportation [facility] will be picking pt up from [phone]
[2022-05-04 19:00] VITALS: BP 120/67
--- NOTE | 2022-05-04 19:00 | NUR ---
Patient discharged with v/s stable. Written and verbal after care instructions given and explained. Patient verbalized understanding. Medical Transport [facility]. All questions addressed prior to discharge. Advised to follow up with PMD.
== END 2022-05-04 19:00 | disposition home or self-care (01) ==
LOC: MED 12:26
DX: S05.12XA Contusion of eyeball and orbital tissues, left eye, initial encounter (principal); R55 Syncope and collapse; I10 Essential (primary) hypertension; F03.90 Unspecified dementia, unspecified severity, without behavioral disturbance, psychotic disturbance, mood disturbance, and anxiety; Z79.899 Other long term (current) drug therapy; Z79.82 Long term (current) use of aspirin; Z88.1 Allergy status to other antibiotic agents; W05.0XXA Fall from non-moving wheelchair, initial encounter; Y93.89 Activity, other specified; Y92.89 Other specified places as the place of occurrence of the external cause; Y99.8 Other external cause status
CPT/HCPCS: 36415; 70450; 70486; 71045; 72125; 72170; 80053; 84484; 85025; 93005; 99285; Q0092